=== PATIENT | female | born 1935 | race Caucasian/White ===

== ENCOUNTER 2022-02-07 16:51 | Inpatient (IN) ==
[2022-02-07] MEDS ORDERED: Naloxone 0.4 MG/ML INJ IVP PRN (20:02)
[2022-02-07 21:06] LABS: Mean Corpuscular Volume 97.1 fL (83.0-100.0); Monocytes % 9.6 %; Red Cell Distribution Width 15.2 % (11.5-14.5)
[2022-02-07 21:08] LABS: Basophils % 0.5 %; Eosinophils # 0.1 K/mcL (0.0-0.6); Eosinophils % 2.1 %; Hemoglobin 9.6 g/dL (11.5-15.4); Immature Granulocytes % 0.2 % (0-4); Immature Platelets 17.3 % (1.1-6.1); Lymphocytes # 0.9 K/mcL (0.6-4.6); Lymphocytes % 19.8 %; Mean Corpuscular Hemoglobin 31.1 pg (28.0-33.3); Monocytes # 0.4 K/mcL (0.0-1.3); Red Blood Count 3.09 M/mcL (3.82-4.97); Segmented Neutrophils % 67.8 %; White Blood Count 4.4 K/mcL (4.3-11.1)
[2022-02-07] MEDS: cefTRIAXone 1,000 MG in 0.9 % Sodium Chloride 10 ML IVPB SCH (21:17)
[2022-02-07 21:26] LABS: Albumin 2.9 g/dL (3.5-5.7); Bilirubin,Total 0.4 mg/dL (0.3-1.0); Calcium 8.7 mg/dL (8.6-10.3); Globulin 2.9 g/dL (2.4-3.5); Potassium 4.4 mEq/L (3.5-5.1); Total Protein 5.8 g/dL (6.4-8.9)
[2022-02-07 21:27] LABS: Platelet Count 86 K/mcL (140-400)
[2022-02-07 21:28] LABS: Platelet Estimate Slight Decrease (Normal)
[2022-02-07] MEDS: *HR* Heparin 5,000 UNIT/ML VIAL SQ SCH (23:33)
[2022-02-07] MEDS: D5% in 0.45% NACL 1,000 ML IVC SCH (23:33)
[2022-02-07 23:49] LABS: Sodium, Urine 57.2 mEq/L
[2022-02-08 06:23] LABS: Basophils % 0.2 %; Hemoglobin 9.4 g/dL (11.5-15.4); Immature Granulocytes % 0.2 % (0-4)
[2022-02-08 06:25] LABS: Eosinophils # 0.1 K/mcL (0.0-0.6); Eosinophils % 2.8 %; Hematocrit 29.8 % (35.3-44.9); Immature Platelets 15.2 % (1.1-6.1); Lymphocytes # 0.9 K/mcL (0.6-4.6); Lymphocytes % 21.7 %; Mean Corpuscular HGB Conc 31.5 g/dL (31.6-35.5); Mean Corpuscular Hemoglobin 30.9 pg (28.0-33.3); Monocytes # 0.5 K/mcL (0.0-1.3); Monocytes % 11.9 %; Neutrophils # 2.7 K/mcL (1.6-8.9); Red Blood Count 3.04 M/mcL (3.82-4.97); Red Cell Distribution Width 15.1 % (11.5-14.5); Segmented Neutrophils % 63.2 %; White Blood Count 4.3 K/mcL (4.3-11.1)
[2022-02-08 06:29] LABS: Platelet Count 77 K/mcL (140-400)
[2022-02-08 06:44] LABS: Calcium 8.8 mg/dL (8.6-10.3)
[2022-02-08] MEDS: *HR* Heparin 5,000 UNIT/ML VIAL SQ SCH ×3 (07:31→22:38)
[2022-02-08] MEDS: cefTRIAXone 1,000 MG in 0.9 % Sodium Chloride 10 ML IVPB SCH (07:31)
[2022-02-08] MEDS ORDERED: Acetaminophen 325 MG TABLET PO PRN (09:32)
[2022-02-08] MEDS ORDERED: 0.9 % Sodium Chloride 500 ML IVC ONE (09:35)
[2022-02-08] MEDS: D5% in 0.45% NACL 1,000 ML IVC SCH ×2 (10:01→22:39)
[2022-02-09 01:32] LABS: Hemoglobin 8.9 g/dL (11.5-15.4); Immature Granulocytes % 0.2 % (0-4); Mean Corpuscular Hemoglobin 30.7 pg (28.0-33.3)
[2022-02-09 01:34] LABS: Basophils % 0.2 %; Eosinophils # 0.2 K/mcL (0.0-0.6); Eosinophils % 3.2 %; Hematocrit 27.7 % (35.3-44.9); Immature Platelets 16.6 % (1.1-6.1); Lymphocytes # 0.8 K/mcL (0.6-4.6); Mean Corpuscular HGB Conc 32.1 g/dL (31.6-35.5); Mean Corpuscular Volume 95.5 fL (83.0-100.0); Mean Platelet Volume 14.7 fL (9.4-12.4); Monocytes # 0.5 K/mcL (0.0-1.3); Monocytes % 10.8 %; Neutrophils # 3.2 K/mcL (1.6-8.9); Segmented Neutrophils % 68.6 %; White Blood Count 4.7 K/mcL (4.3-11.1)
[2022-02-09 01:37] LABS: Platelet Count 78 K/mcL (140-400)
[2022-02-09 02:00] LABS: Calcium 8.8 mg/dL (8.6-10.3)
[2022-02-09] MEDS ORDERED: Ondansetron 4 MG/2 ML VIAL IVP PRN (02:52)
[2022-02-09] MEDS: D5% in 0.45% NACL 1,000 ML IVC SCH (09:03)
[2022-02-09 09:08] LABS: Phosphorous 3.3 mg/dL (2.7-4.5); Uric Acid 9.8 mg/dL (2.3-7.6)
[2022-02-09] MEDS: cefTRIAXone 1,000 MG in 0.9 % Sodium Chloride 10 ML IVPB SCH (09:14)
[2022-02-09] MEDS: *HR* Heparin 5,000 UNIT/ML VIAL SQ SCH ×2 (09:19→17:19)
[2022-02-09] MEDS: Aspirin Enteric Coated 81 MG Tablet PO SCH (09:19)
[2022-02-09 09:21] LABS: Thyroid Stimulating Hormone 0.04 mcIU/mL (0.340-5.600)
[2022-02-09] MEDS ORDERED: Sodium Bicarbonate 75 MEQ in 0.45 % Sodium Chloride 1,000 ML IVC SCH (11:00)
[2022-02-09] MEDS: Sodium Bicarbonate 75 MEQ in 0.45 % Sodium Chloride 1,000 ML IVC SCH (13:10)
[2022-02-09] MEDS ORDERED: Albumin 25% 25gram/100mL 25 GM/100 ML IV.SOLN IVPB ONE (16:56)
[2022-02-10] MEDS: *HR* Heparin 5,000 UNIT/ML VIAL SQ SCH ×4 (00:06→18:47)
[2022-02-10] MEDS: Sodium Bicarbonate 75 MEQ in 0.45 % Sodium Chloride 1,000 ML IVC SCH ×2 (02:04→16:52)
[2022-02-10 02:07] LABS: Eosinophils % 4.1 %; Lymphocytes % 16.5 %
[2022-02-10 02:09] LABS: Basophils % 0.3 %; Eosinophils # 0.2 K/mcL (0.0-0.6); Hematocrit 25.1 % (35.3-44.9); Immature Granulocytes % 0.5 % (0-4); Immature Platelets 16.6 % (1.1-6.1); Lymphocytes # 0.7 K/mcL (0.6-4.6); Mean Corpuscular HGB Conc 31.9 g/dL (31.6-35.5); Mean Corpuscular Hemoglobin 30.7 pg (28.0-33.3); Mean Corpuscular Volume 96.2 fL (83.0-100.0); Monocytes # 0.4 K/mcL (0.0-1.3); Monocytes % 9.1 %; Neutrophils # 2.8 K/mcL (1.6-8.9); Red Blood Count 2.61 M/mcL (3.82-4.97); Red Cell Distribution Width 15.1 % (11.5-14.5); Segmented Neutrophils % 69.5 %
[2022-02-10 02:11] LABS: Platelet Count 67 K/mcL (140-400)
[2022-02-10 02:28] LABS: Calcium 8.8 mg/dL (8.6-10.3); Potassium 3.9 mEq/L (3.5-5.1)
[2022-02-10 06:31] LABS: Protein/Creatinine Ratio,Urine 0.47 mg/mg (0.00-0.20)
[2022-02-10] MEDS: Aspirin Enteric Coated 81 MG Tablet PO SCH (07:53)
[2022-02-10] MEDS: cefTRIAXone 1,000 MG in 0.9 % Sodium Chloride 10 ML IVPB SCH (10:02)
[2022-02-10 12:32] LABS: Vitamin B12 110 pg/mL (250-1100)
[2022-02-10 12:38] LABS: Vitamin D 25 Hydroxy 8 ng/mL (30-80)
[2022-02-10 13:06] LABS: Hepatitis B Surface Antigen Nonreactive (Nonreactive)
[2022-02-10 13:35] LABS: Hepatitis B Core IgM Nonreactive (Nonreactive)
[2022-02-10 13:36] LABS: Hepatitis A Antibody IgM Nonreactive (Nonreactive); Hepatitis C Virus Antibody Nonreactive (Nonreactive)
[2022-02-10] MEDS: Cyanocobalamin (B-12) 1,000 MCG TABLET PO SCH (18:46)
[2022-02-10 20:26] LABS: % Iron Saturation 67 % (15-50); Iron 101 mcg/dL (50-170); Transferrin 108 mg/dL (203-362)
[2022-02-10 20:43] LABS: Ferritin 219 ng/mL (10-120)
[2022-02-11 03:02] LABS: Basophils % 0.3 %
[2022-02-11 03:04] LABS: Eosinophils # 0.2 K/mcL (0.0-0.6); Eosinophils % 3.9 %; Hematocrit 24.5 % (35.3-44.9); Hemoglobin 7.9 g/dL (11.5-15.4); Immature Platelets 17.8 % (1.1-6.1); Lymphocytes # 0.8 K/mcL (0.6-4.6); Lymphocytes % 19.8 %; Mean Corpuscular HGB Conc 32.2 g/dL (31.6-35.5); Mean Corpuscular Hemoglobin 30.7 pg (28.0-33.3); Mean Corpuscular Volume 95.3 fL (83.0-100.0); Mean Platelet Volume 14.8 fL (9.4-12.4); Monocytes # 0.4 K/mcL (0.0-1.3); Monocytes % 11.2 %; Neutrophils # 2.5 K/mcL (1.6-8.9); Red Blood Count 2.57 M/mcL (3.82-4.97); Red Cell Distribution Width 15.4 % (11.5-14.5); Segmented Neutrophils % 64.8 %; White Blood Count 3.8 K/mcL (4.3-11.1)
[2022-02-11 03:05] LABS: Calcium 8.3 mg/dL (8.6-10.3); Potassium 3.5 mEq/L (3.5-5.1)
[2022-02-11 03:35] LABS: Platelet Count 65 K/mcL (140-400)
[2022-02-11] MEDS: *HR* Heparin 5,000 UNIT/ML VIAL SQ SCH (04:40)
[2022-02-11] MEDS: Sodium Bicarbonate 75 MEQ in 0.45 % Sodium Chloride 1,000 ML IVC SCH (04:40)
[2022-02-11] MEDS: Cyanocobalamin (B-12) 1,000 MCG TABLET PO SCH (10:09)
[2022-02-11] MEDS: Aspirin Enteric Coated 81 MG Tablet PO SCH (10:10)
[2022-02-11] MEDS: cefTRIAXone 1,000 MG in 0.9 % Sodium Chloride 10 ML IVPB SCH (10:11)
[2022-02-11] MEDS ORDERED: Ondansetron 4 MG/2 ML VIAL IVP PRN (12:35)
[2022-02-11 15:37] VITALS: BP 103/61; PULSE 70; TEMP 97.8; O2SAT 99
== END 2022-02-11 19:47 | disposition home health service (06) | DRG 871 ==
LOC: 2ANU → ICNU 19:47 → SUATTDRO 20:02 → 2ANU 02-08 17:01
PROVIDERS: ADMIT Pharmacist; ATTEND General Practice